=== PATIENT | female | born 1970 | race Caucasian/White ===

== ENCOUNTER 2017-04-01 08:26 | Inpatient (IN) | payer BC ==
[~2017-04-01] VITALS: Ht 157.5 cm; Wt 48.8 kg
[~2017-04-01 08:26] MED LIST: CHLO1CAP56 PO; IBUP1TAB14 PO
[2017-04-01] MEDS ORDERED: SOD CHLORIDE 0.9% 1,000 ML IV STA (08:35)
[2017-04-01] MEDS ORDERED: ONDANSETRON 4 MG INJ IV STA (08:42)
--- NOTE | 2017-04-01 09:13 | ERD ---
ER Documentation Chief Complaint Chief Complaint syncope HPI This is a 46-year-old female with no significant past medical history who is presenting with an episode of syncope and associated nausea with nonbilious nonbloody vomiting. The patient was reportedly found in the bathroom by her significant other. The patient did reportedly fall during the syncopal event and sustained a small abrasion to her right eye. She does not endorse a headache presently. An ambulance was called at that time. The paramedics provided her IM Zofran, but she remains nauseated. The patient denies feeling sick recently. The patient denies fever or chills. The patient has had no headache or vision changes. The patient denies lightheadedness or dizziness. The patient has had no chest pain or shortness of breath trouble breathing. The patient denies abdominal pain or changes to bowel movements or urination. The patient has had no focal deficits. The patient has had no weakness or numbness or tingling to the face or extremities. ROS All systems reviewed and are negative except as per history of present illness. Medications Home Meds Reported Medications Ibuprofen/Diphenhydramine (Advil Pm Caplet) 1 Tab Tablet, 1 TAB PO HS Y for SLEEP 11/28/14 Chlordiazepoxide/Clidinium* (Librax*) 1 Cap Cap, 1 CAP PO DAILY Y for DIARRHEA, #1 CAP 11/28/14 Allergies Allergies: Coded Allergies: No Known Drug Allergies (Unverified Allergy, Unknown, 11/28/14) Uncoded Allergies: SHELLFISH (Allergy, Unknown, 11/04/09) PMhx/Soc History of Surgery: Yes (WRIST SX, BARTHLOLIN'S CYST, ) Anesthesia Reaction: No Hx Neurological Disorder: No Hx Respiratory Disorders: No Hx Cardiac Disorders: No Hx Psychiatric Problems: No Hx Miscellaneous Medical Probl: No Hx Alcohol Use: Yes Hx Substance Use: No Hx Tobacco Use: No Smoking Status: Former smoker FmHx Family History: No diabetes Physical Exam Vitals Vital Signs Date Time Temp Pulse Resp B/P Pulse Ox O2 Delivery O2 Flow Rate FiO2 04/01/17 11:16 91 18 104/70 98 Room Air 04/01/17 09:18 78 25 100/67 100 35 67/34 04/01/17 08:32 98.7 79 20 104/67 Physical Exam Const: No apparent distress, well-developed, well-nourished Head: Atraumatic Eyes: Normal Conjunctiva. Extraocular movements intact. ENT: Normal External Ears, Nose and Mouth. Neck: Full range of motion. ~ No meningismus. Resp: Clear to auscultation bilaterally Cardio: Irregularly irregular rate and rhythm, no murmurs Abd: Soft, non tender, non distended. Normal bowel sounds Skin: No petechiae or rashes Back: No midline or flank tenderness Ext: No cyanosis, or edema Neur: Awake and alert, oriented 4. Cranial nerves intact. No facial droop. Normal strength and sensation in all extremities. Coordination with finger to nose normal. Psych: Normal Mood and Affect Result Diagram: 04/01/17 0850 04/01/17 0850 Results 24 hrs Laboratory Tests Test 04/01/17 08:50 04/01/17 09:00 04/01/17 09:06 White Blood Count 8.010^3/ul Red Blood Count 4.3710^6/ul Hemoglobin 12.3g/dl Hematocrit 37.3% Mean Corpuscular Volume 85.4fl Mean Corpuscular Hemoglobin 28.1pg Mean Corpuscular Hemoglobin Concent 33.0g/dl Red Cell Distribution Width 14.3% Platelet Count 77657^3/UL Mean Platelet Volume 9.7fl Neutrophils % 67.8% Lymphocytes % 23.7% Monocytes % 7.1% Eosinophils % 1.0% Basophils % 0.2% Nucleated Red Blood Cells % 0.0/100WBC Neutrophils # 5.410^3/ul Lymphocytes # 1.910^3/ul Monocytes # 0.610^3/ul Eosinophils # 0.110^3/ul Basophils # 0.010^3/ul Nucleated Red Blood Cells # 0.010^3/ul Sodium Level 144mmol/L Potassium Level 3.9mmol/L Chloride Level 109mmol/L Carbon Dioxide Level 23mmol/L Anion Gap 16 Blood Urea Nitrogen 11mg/dl Creatinine 0.63mg/dl Glucose Level 111mg/dl Calcium Level 9.4mg/dl Troponin I 0.013ng/ml Thyroid Stimulating Hormone (TSH) 2.390MIU/L Free Thyroxine 1.06ng/dl Urine Color STRAW Urine Clarity CLEAR Urine pH 7.0 Urine Specific [place] 1.005 Urine Ketones NEGATIVEmg/dL Urine Nitrite NEGATIVEmg/dL Urine Bilirubin NEGATIVEmg/dL Urine Urobilinogen NEGATIVEmg/dL Urine Leukocyte Esterase NEGATIVELeu/ul Urine Microscopic RBC 1/HPF Urine Microscopic WBC 0/HPF Urine Bacteria FEW/HPF Urine Hemoglobin 1+mg/dL Urine Glucose NEGATIVEmg/dL Urine Total Protein NEGATIVEmg/dl Urine Opiates Screen Negative Urine Barbiturates Negative Urine Amphetamines Screen Negative Urine Benzodiazepines Screen Negative Urine Cocaine Screen Negative Urine Cannabinoids Negative Bedside Glucose 86mg/dL Current Medications Medications (Trade) Dose Ordered Sig/Naman Route PRN Reason Start Time Stop Time Status Last Admin Dose Admin Sodium Chloride (NS) 1,000 ml @ 1,000 mls/hr Q1H STAT IV 04/01/17 08:35 04/01/17 09:34 DC 04/01/17 09:25 Ondansetron HCl (Zofran Inj) 4 mg ONCE STAT IV 04/01/17 08:42 04/01/17 08:43 DC 04/01/17 09:28 Ondansetron HCl (Zofran Inj) 4 mg ER BRIDGE PRN IV NAUSEA AND/OR VOMITING 04/01/17 11:00 04/02/17 10:59 Acetaminophen (Tylenol Tab) 650 mg ER BRIDGE PRN PO MILD PAIN/FEVER 04/01/17 11:00 04/02/17 10:59 Procedures/MDM MDM Patient's presentation warrants further investigation. The patient had a syncopal event and requires a syncopal workup. This will include blood work to evaluate for an infectious or metabolic etiology. She will require an EKG and cardiac blood testing for a cardiac etiology. The patient has no neurologic deficits and I have lower suspicion for stroke or cerebral ischemia. The patient does not endorse a headache, and I have low suspicion for subarachnoid hemorrhage. The patient does not have a history of seizures and there is no reported witnessed shaking. A TSH and free T4 will also be sent off to evaluate for thyroid dysfunction. Urine testing will evaluate for infection, hematuria and . LABS The patient's blood work was obtained and reviewed. The patient seemed shows no leukocytosis or left shift. The patient is afebrile, and I do not suspect a systemic infection. The patient is not anemic today. The patient's platelet count is unremarkable. The patient's BMP shows no signs of metabolic or electrolyte abnormality. The patient has normal renal function testing. Her urinalysis does not reveal infection or hematuria. Her UDS is negative. The patient's TSH and free T4 are unremarkable. EKG EKG read by me: Rate/Rhythm: Irregularly irregular rhythm indicating atrial fibrillation with a heart rate of 79 bpm. Intervals: No NM interval is evident. The patient's QRS and QTc are unremarkable. [place]: Normal No delta wave. No signs of Brugada or Xyfan-Vciiokdfx-Xfzop. Impression: Atrial fibrillation without evidence of ischemia. IMAGING CXR FINDINGS: The lungs are clear. The heart size is normal. There is no pleural effusion. There is no pneumothorax. IMPRESSION: Normal chest radiograph. Electronically viewed and signed by .Everett Blum MD, on 04/01/2017 09:14 TREATMENT/DISPOSITION The patient was given Zofran and IV fluids in the emergency department. The patient did have a vasovagal event in the emergency department when we sat her up to complete orthostatics. She felt extremely nauseated when this occurred. Her blood pressure dropped to systolic in the 60s and she transiently became bradycardic with a heart rate in the high 30s. After laying her flat again, her vital signs improved and her mentation returned to baseline. I do not see a cardiac etiology of her symptoms. The patient is neuro intact and I do not suspect a neurologic etiology. The patient had a fall from a seated position. She does have bruising over her but I do not suspect a neurologic etiology. I do not feel that she emergently requires a CT scan of the head. She received IV fluids and Zofran in the emergency department. There is a possibility of a viral infection leading to her feeling unwell and resulting in the vasovagal events. However, the atrial fibrillation is new and should be worked up further. The patient does not have symptoms consistent with gastroenteritis. She does not have any abdominal complaints. The patient will require admission to the hospital for further evaluation and management. As per her insurance status, she is admitted to Dr. Oneil at 10: 30AM on March 24, 2017. Departure Diagnosis: Primary Impression: Syncope Syncope type: vasovagal syncope Qualified Code: R55 - Vasovagal syncope Additional Impressions: Atrial fibrillation Atrial fibrillation type: unspecified Qualified Code: I48.91 - Atrial fibrillation, unspecified type Nausea & vomiting Vomiting type: unspecified Vomiting Intractability: non-intractable Qualified Code: R11.2 - Non-intractable vomiting with nausea, unspecified vomiting type Condition: Serious DONAVON VILLASEÑOR MD Apr 01, 2017 09:13
--- NOTE | 2017-04-01 09:14 | RADRPT ---
PROCEDURE: XR Chest. CLINICAL INDICATION: Syncope. TECHNIQUE: Single frontal view. COMPARISON: None. FINDINGS: The lungs are clear. The heart size is normal. There is no pleural effusion. There is no pneumothorax. IMPRESSION: 1. Normal chest radiograph. RPTAT: QQ .Everett Blum MD, Date Time Electronically viewed and signed by .Everett Blum MD, on 04/01/2017 09:14 .R/
[2017-04-01] MEDS ORDERED: ONDANSETRON 4 MG INJ IV PRN (11:00)
[2017-04-01] MEDS ORDERED: ACETAMINOPHEN 325 MG TAB PO PRN ×2 (11:00→15:00)
[2017-04-01 11:37] VITALS: PULSE 87
[2017-04-01 11:40] VITALS: BP 123/63; PULSE 95; RESP 22; Ht 157.5 cm; Wt 48.8 kg
[2017-04-01] MEDS ORDERED: SOD CHLORIDE 0.9% 500 ML IV ONE (14:35)
--- NOTE | 2017-04-01 14:47 | HP ---
Date/Time of Note Date/Time of Note DATE: 04/01/17 TIME: 14:40 Assessment/Plan VTE Prophylaxis VTE Prophylaxis Intervention: heparin Assessment/Plan Problems: (1) Irritable bowel syndrome with diarrhea Status: Chronic Comment: Noted. She has been off of her Librax for some time. I do not believe that this is actually part and parcel what is going on at this admission (2) Atrial fibrillation Status: Acute Comment: She resolved prior to my getting to see her in the emergency room stepdown unit. We will continue her on observation recheck her EKG in the morning and an echocardiogram. Her thyroid function tests are normal. I suspect that this may have been due to the stressors that brought her in. Qualifiers: Atrial fibrillation type: unspecified Qualified Code: I48.91 - Atrial fibrillation, unspecified type (3) Syncope Status: Acute Comment: Part of this was clearly vasovagal but I also believe that she has rather significant viral illness and is rather dehydrated. He can hydrate her aggressively and keep an eye on her and see how she does. 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 She has a history of intermittent syncopal episodes although none in the last 7 years reportedly. In the last week she has not been feeling well with a sensation of nausea malaise muscle aches. She denies any fevers chills or sweats she denies any temporal pain or jaw claudication. Denies any cough. On the day of admission she had syncope including falling with closed head trauma that actually led to a cracked tooth. ROS Constitutional: chills, no complaints (Denies fevers but does have some chills. ) Eyes: no complaints ENT: no complaints Respiratory: no complaints Cardiovascular: no complaints Gastrointestinal: nausea (Denies diarrhea denies melena and denies bright red blood per rectum) Genitourinary: no complaints Musculoskeletal: other (Diffusely achy) Skin: no complaints Neurologic: syncope (Syncope 3 today-possible vasovagal) Endocrine: no complaints Lymphatic: no complaints PMH/Family/Social Past Medical History Medical History: irritable bowel syndrome (IBS-D), other ( Ab0) Past Surgical History Past Surgical Hx: other (Status post ; status post wrist surgery; status post tubal ligation) Family History Significant Family History: no pertinent family hx Social History Alcohol Use: none Smoking Status: Former smoker Drug Use: none Exam/Review of Systems Vital Signs Vitals Vital Signs Date Time Temp Pulse Resp B/P Pulse Ox O2 Delivery O2 Flow Rate FiO2 04/01/17 11:40 97.6 95 22 123/63 100 Room Air Exam Constitutional: alert, oriented Psych: nl mood/affect, no complaints Head: normocephalic, other (Left lateral orbital bruise) Eyes: EOMI, PERRL, nl conjunctiva, nl lids, nl sclera ENMT: nl external ears & nose, nl lips & teeth, nl nasal mucosa & septum, other (Dry mucous membranes) Neck: non-tender, supple Respiratory: clear to auscultation, normal air movement Cardiovascular: nl pulses, regular rate and rhythm Gastrointestinal: nl liver, spleen, non-tender, soft Extremities: normal pulses Neurological: TAX MANAGER CPA II-XII intact, nl mental status, nl speech, nl strength Skin: nl turgor, rash or lesions Labs Result Diagram: 04/01/17 0850 04/01/17 0850 WEN DRAPER MD Apr 01, 2017 14:47
[2017-04-01] MEDS ORDERED: LORAZEPAM 0.5 MG TAB PO PRN (15:00)
[2017-04-01] MEDS ORDERED: LACTATED RINGER'S 500 ML IV ONE (15:00)
[2017-04-01] MEDS ORDERED: NACL 0.9% 3 ML SYG IV SCH (15:00)
[2017-04-01] MEDS ORDERED: ONDANSETRON 4 MG TAB PO PRN (15:00)
[2017-04-01] MEDS: SOD CHLORIDE 0.9% 1,000 ML IV SCH (15:14)
[2017-04-01] MEDS: FAMOTIDINE 20 MG TAB PO SCH ×2 (15:18→21:37)
[2017-04-01 16:00] VITALS: PULSE 93
[2017-04-01] MEDS: HEPARIN 5,000 UNIT/0.5 ML VIAL SC SCH ×2 (16:00→21:36)
[2017-04-01 18:48] VITALS: BP 113/59; PULSE 95; RESP 19
[2017-04-01 19:20] VITALS: BP 130/61; RESP 20
[2017-04-01 20:07] VITALS: PULSE 93
--- NOTE | 2017-04-01 20:15 | RADRPT ---
PROCEDURE: CT Brain without. CLINICAL INDICATION: Head trauma, pain syncope. TECHNIQUE: A CT of the brain was performed on multidetector high-resolution CT scanner utilizing a xial sections from the skull base through the vertex without contrast. The scan was reviewed in sof t tissue brain and high frequency resolution bone algorithm windows. Images were reviewed on a high -resolution PACS workstation. One or more the following does reduction techniques were utilized: Aut omated exposure control, adjustment of the mA/ or kV according to patient's size, or use of iterativ e reconstruction technique. The exam CTDI = 45.01 mGy and the DLP = 720.23 mGy-cm. COMPARISON: None available. FINDINGS: The ventricles and sulci are age-appropriate. There is no intracranial hemorrhage, mass effect or mi dline shift. No abnormal intra-axial or extra-axial fluid collections are seen. The richardson/white marisabel er differentiation is preserved. Small 7 mm old lacunar infarct versus dilated perivascular space i s noted in the left lentiform nucleus. No acute skull abnormality is noted. The visualized paranasa l sinuses are essentially clear. IMPRESSION: 1. No acute intracranial hemorrhage, transcortical infarction or mass effect. 2. Small old lacunar infarct versus dilated perivascular space is noted in the left lentiform nucle us. RPTAT: HFN .Kristal Erwin MD, MD Date Time Electronically viewed and signed by .Kristal Erwin MD, MD on 04/01/2017 20:15 .N/
[2017-04-02] VITALS: BP 126/77; RESP 20
[2017-04-02 00:11] VITALS: PULSE 85
[2017-04-02] MEDS: SOD CHLORIDE 0.9% 1,000 ML IV SCH ×2 (00:15→00:35)
[2017-04-02 04:00] VITALS: BP 121/59; RESP 20
[2017-04-02 04:23] VITALS: PULSE 84
[2017-04-02] MEDS: HEPARIN 5,000 UNIT/0.5 ML VIAL SC SCH (06:05)
[2017-04-02 08:04] VITALS: BP 119/58; RESP 18
[2017-04-02 08:14] VITALS: PULSE 86
[2017-04-02] MEDS: FAMOTIDINE 20 MG TAB PO SCH (08:40)
--- NOTE | 2017-04-02 09:54 | DS ---
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 She has a history of intermittent syncopal episodes although none in the last 7 years reportedly. In the last week she has not been feeling well with a sensation of nausea malaise muscle aches. She denies any fevers chills or sweats she denies any temporal pain or jaw claudication. Denies any cough. On the day of admission she had syncope including falling with closed head trauma that actually led to a cracked tooth. Hospital Course 46 yo female admitted with syncope and dehyddration. In setting of viral syndrome, had fall with closed head trauma. Ct scan negative and post hydration fully at baseline. Now stable to discharge Home Meds Reported Medications Ibuprofen/Diphenhydramine (Advil Pm Caplet) 1 Tab Tablet, 1 TAB PO HS Y for SLEEP 11/28/14 Chlordiazepoxide/Clidinium* (Librax*) 1 Cap Cap, 1 CAP PO DAILY Y for DIARRHEA, #1 CAP 11/28/14 Follow-up Plan Dr. Aruajo in one week Primary Care Provider Tha Araujo MD Time spent on discharge: > 30 minutes Pending Labs Laboratory Tests Test 04/01/17 14:57 04/01/17 20:53 04/02/17 07:32 D-Dimer 397.40ng/ml (<460) D-Dimer Comment Creatine Kinase 85IU/L (23-200) 86IU/L (23-200) Creatine Kinase Index 1.9 1.5 Creatinine Kinase MB (Mass) 1.64ng/ml (0.0-2.4) 1.33ng/ml (0.0-2.4) Troponin I < 0.012ng/ml (0.00-0.12) < 0.012ng/ml (0.00-0.12) White Blood Count 9.410^3/ul (4.8-10.8) Red Blood Count 3.7310^6/ul (4.20-5.40) Hemoglobin 10.6g/dl (12.0-16.0) Hematocrit 32.8% (37.0-47.0) Mean Corpuscular Volume 87.9fl (82.0-101.0) Mean Corpuscular Hemoglobin 28.4pg (29.0-33.0) Mean Corpuscular Hemoglobin Concent 32.3g/dl (32.0-37.0) Red Cell Distribution Width 14.6% (11.5-14.5) Platelet Count 55448^3/UL (140-415) Mean Platelet Volume 10.2fl (7.4-10.4) Neutrophils % 75.4% (39.0-77.0) Lymphocytes % 15.6% (15.0-51.0) Monocytes % 8.2% (0.0-11.0) Eosinophils % 0.5% (0.0-7.0) Basophils % 0.1% (0.0-2.0) Nucleated Red Blood Cells % 0.0/100WBC (0.0-0.0) Neutrophils # 7.010^3/ul (1.6-7.5) Lymphocytes # 1.510^3/ul (0.8-2.9) Monocytes # 0.810^3/ul (0.3-0.9) Eosinophils # 0.110^3/ul (0.0-0.5) Basophils # 0.010^3/ul (0.0-0.1) Nucleated Red Blood Cells # 0.010^3/ul (0.0-0.0) Sodium Level 141mmol/L (135-144) Potassium Level 3.4mmol/L (3.5-5.1) Chloride Level 112mmol/L (97-110) Carbon Dioxide Level 25mmol/L (21-31) Anion Gap 7 (8-16) Blood Urea Nitrogen 12mg/dl (7-20) Creatinine 0.63mg/dl (0.44-1.00) Glucose Level 89mg/dl (70-220) Calcium Level 8.2mg/dl (8.4-10.2) Total Bilirubin 0.4mg/dl (0.2-1.3) Direct Bilirubin 0.00mg/dl (0.00-0.20) Indirect Bilirubin 0.4mg/dl (0-1.1) Aspartate Amino Transf (AST/SGOT) 22IU/L (15-46) Alanine Aminotransferase (ALT/SGPT) 27IU/L (13-69) Alkaline Phosphatase 57IU/L (42-121) Total Protein 5.8g/dl (6.1-8.1) Albumin 3.0g/dl (3.3-4.9) Globulin 2.80g/dl (1.3-3.2) Albumin/Globulin Ratio 1.07 WEN DRAPER MD Apr 02, 2017 09:54
--- NOTE | 2017-04-02 09:55 | PDOCDIS ---
Discharge Instructions DIAGNOSIS Discharge Diagnosis Viral Syndrome; Dehydration; Vaso-Vagal syncope CONDITION Patient Condition: Good HOME CARE INSTRUCTIONS: Diet Instructions: Regular ACTIVITY: Activity Restrictions: No Restrictions FOLLOW UP/APPOINTMENTS Follow-up Plan Dr. Araujo in one week WEN DRAPER MD Apr 02, 2017 09:55
--- NOTE | 2017-04-02 12:08 | RADRPT ---
Vent Rate: 75 bpm RR Interval: 0 msec VA Interval: 140 msec QRS Duration: 88 msec QT Interval: 380 msec QTC Interval: 424 msec P-R-T [place]: 77 - 76 - 66 degrees Normal sinus rhythm with sinus arrhythmia Normal ECG Electronically Signed By: Xavier Campbell [id number]
--- NOTE | 2017-04-02 12:08 | RADRPT ---
Vent Rate: 75 bpm RR Interval: 0 msec NM Interval: 140 msec QRS Duration: 88 msec QT Interval: 380 msec QTC Interval: 424 msec P-R-T [place]: 77 - 76 - 66 degrees Normal sinus rhythm with sinus arrhythmia Normal ECG Electronically Signed By: Xavier Campbell [id number]
--- NOTE | 2017-04-02 12:08 | RADRPT ---
Vent Rate: 75 bpm RR Interval: 0 msec VA Interval: 140 msec QRS Duration: 88 msec QT Interval: 380 msec QTC Interval: 424 msec P-R-T [place]: 77 - 76 - 66 degrees Normal sinus rhythm with sinus arrhythmia Normal ECG Electronically Signed By: Xavier Campbell [id number]
== END 2017-04-02 10:32 | disposition home or self-care (01) | DRG 866 ==
LOC: EEVIPCON 08:26 → E/R 08:26 → MS3 12:16 → MS4 19:26
PROVIDERS: ADMIT Internal Medicine; ATTEND Internal Medicine
DX: B34.9 Viral infection, unspecified (principal); I48.91 Unspecified atrial fibrillation; R55 Syncope and collapse; E86.0 Dehydration; K58.0 Irritable bowel syndrome with diarrhea; R11.2 Nausea with vomiting, unspecified; S00.90XA Unspecified superficial injury of unspecified part of head, initial encounter; W18.39XA Other fall on same level, initial encounter; Y93.89 Activity, other specified; Y92.9 Unspecified place or not applicable; Y99.8 Other external cause status; Z87.891 Personal history of nicotine dependence
CPT/HCPCS: 36415; 70450; 71010; 80048; 80053; 80307; 81001; 82550; 82553; 82962; 83735; 84439; 84443; 84484; 85025; 85378; 93005; 96374; J1644; J2405; J7030; J7120

== ENCOUNTER 2017-12-08 06:31 | Day surgery (SDC) | END 2017-12-08 09:26 | disposition home or self-care (01) ==

== ENCOUNTER 2018-09-25 11:34 | Day surgery (SDC) | payer BC ==
[~2018-09-25] VITALS: Ht 157.5 cm; Wt 53.8 kg
[~2018-09-25 11:34] MED LIST changes: +ASPI-903 PO; -CHLO1CAP56 PO; +ESTR0.5T PO; -IBUP1TAB14 PO
[2018-09-25 12:16] VITALS: Ht 157.5 cm; Wt 53.8 kg
[2018-09-25] MEDS ORDERED: METOPROLOL (12:41)
[2018-09-25] MEDS ORDERED: ADVIL (12:41)
[2018-09-25] MEDS ORDERED: [UNRECOGNIZED DRUG - OTHER] (12:41)
[2018-09-25 12:42] VITALS: BP 133/60; PULSE 77; RESP 23
--- NOTE | 2018-09-25 13:15 | PREAC ---
Date/Time of Note Date/Time of Note DATE: 09/25/18 TIME: 13:14 Anesthesia Eval and Record Evaluation Time Pre-Procedure Interview DATE: 09/25/18 TIME: 13:14 Age 48 Sex female NPO: 8 hrs Preoperative diagnosis hx colon polyps Planned procedure colonoscopy Past Medical History Past Medical History: Includes Cardio: HTN, Arrythmia, Other (implanted holter minotor ) Surgery & Anesthesia Issues No known issue Meds Anticoagulation: No Beta Andressa within 24 hr: Yes Reported Medications [Librex] No Conflict Check 09/25/18 [Advil] No Conflict Check 09/25/18 [Metoprolol] No Conflict Check 09/25/18 Aspirin* (Aspirin* Chew) 81 Mg Tab.chew, 81 MG PO DAILY, TAB.CHEW 12/08/17 Estradiol (Estradiol) 0.5 Mg Tablet, 0.5 MG PO DAILY 12/08/17 Meds reviewed: Yes Allergies Uncoded Allergies: SHELLFISH (Allergy, Unknown, 11/04/09) Allergies Reviewed: Yes Labs/Studies Labs Reviewed: Reviewed by anesthesiologist test: N/A Pre-procedure Exam Last vitals Vital Signs Date Temp Pulse Resp B/P (MAP) Pulse Ox O2 O2 Flow FiO2 Time Delivery Rate 09/25/18 97.9 77 23 133/60 100 Room Air 12:42 (84) Airway: Adequate mouth opening, Adequate thyromental dist Mallampati: Mallampati II Teeth: Normal Lung: Normal Heart: Normal ASA Physical Status ASA physical status: 2 Emergency: None Pre-operative Attestations Prior to commencing anesthesia and surgery, the patient was re-evaluated, there was verification of: *The patient's identity *The results of appropriate recent lab work and preoperative vital signs *The above evaluation not changing prior to induction *Anesthetic plan, risk benefits, alternative and complications discussed with patient/family; questions answered; patient/family understands, accepts and wishes to proceed. MARIZOL ALICEA DO Sep 25, 2018 13:15
[2018-09-25] MEDS ORDERED: MIDAZOLAM 1 MG/ML 2 ML INJ ONE (13:16)
[2018-09-25] MEDS ORDERED: LIDOCAINE 2% (SDV) 5 ML INJ ONE (13:16)
[2018-09-25] MEDS ORDERED: PROPOFOL 40 ML ONE (13:16)
[2018-09-25] MEDS ORDERED: ESMOLOL 10 ML ONE (13:27)
--- NOTE | 2018-09-25 13:50 | PAC ---
Date/Time of Note Date/Time of Note DATE: 09/25/18 TIME: 13:50 Post-Anesthesia Notes Post-Anesthesia Note Last documented vital signs Vital Signs Date Temp Pulse Resp B/P (MAP) Pulse Ox O2 O2 Flow FiO2 Time Delivery Rate 09/25/18 98 80 23 120/63 100 Room Air 1350 Activity: WNL Respiratory function: WNL Cardiovascular function: WNL Mental status: Baseline Pain reasonably controlled: Yes Hydration appropriate: Yes Nausea/Vomiting absent: Yes MARIZOL ALICEA DO Sep 25, 2018 13:50
[2018-09-25 14:49] VITALS: BP 79/52; PULSE 74; RESP 14
== END 2018-09-25 15:41 | disposition home or self-care (01) ==
LOC: GIL 11:34
PROVIDERS: ATTEND Internal Medicine Gastroenterology
DX: Z86.010 Personal history of colon polyps (principal); I10 Essential (primary) hypertension; Z83.71 Family history of colonic polyps
CPT/HCPCS: 45378; 84703; J2250